=== PATIENT | male | born 1980 | race African-American/Black ===

== ENCOUNTER 2021-10-15 04:00 | Day surgery (SDC) | payer OTHER ==
[2021-10-11 13:21] VITALS: BMI 24.7
[2021-10-15] MEDS ORDERED: MIDAZOLAM HCL 2 MG/2 ML SINGLE DOSE VIAL ONE (08:28)
[2021-10-15 09:21] VITALS: PULSE 65
[2021-10-15] MEDS ORDERED: ONDANSETRON 4 MG/2 ML VIAL IVPUSH PRN (09:27)
[2021-10-15] MEDS ORDERED: oxyCODONE HCL 5 MG TABLET PO PRN (09:27)
[2021-10-15] MEDS ORDERED: ACETAMINOPHEN 325 MG TABLET (FP) PO PRN (09:27)
[2021-10-15] MEDS ORDERED: LACTATED RINGERS SOLUTION 1,000 ML IV SCH (09:30)
[2021-10-15 09:34] VITALS: BP 120/73
[2021-10-16 08:34] VITALS: TEMP 97.5
== END 2021-10-15 09:38 | disposition home or self-care (01) ==
LOC: JASU-SURG 04:00
PROVIDERS: ATTEND Urology
PROC: 0TF3XZZ Fragmentation in Right Kidney Pelvis, External Approach (ICD-10-PCS; principal; 2021-10-15 08:30)
DX: N20.0 Calculus of kidney (principal)